=== PATIENT | male | born 1945 | race Caucasian/White ===

== ENCOUNTER 2018-12-28 01:08 | Observation (INO) ==
[2018-12-28] MEDS ORDERED: *HR* LORazepam 2 MG/ML VIAL IVP PRN (04:40)
[2018-12-28] MEDS ORDERED: D5% in Water 1,000 ML IVC PRN (04:40)
[2018-12-28] MEDS ORDERED: *HR* Dextrose 50 % in Water (Syg) 50 ML SYRINGE IVP PRN (04:40)
[2018-12-28] MEDS ORDERED: Naloxone 0.4 MG/ML INJ IVP PRN (04:40)
[2018-12-28] MEDS ORDERED: Dextrose Gel 15 GM/37.5 ML TUBE PO PRN ×2 (04:40)
[2018-12-28 05:07] LABS: Basophils % 0.4 %; Eosinophils # 0.1 K/mcL (0.0-0.6); Eosinophils % 1.6 %; Hematocrit 37.5 % (37.5-50.1); Hemoglobin 13.4 g/dL (12.9-16.9); Immature Granulocytes % 0.5 % (0-4); Lymphocytes # 0.9 K/mcL (0.6-4.6); Lymphocytes % 10.8 %; Mean Corpuscular HGB Conc 35.7 g/dL (31.6-35.5); Mean Corpuscular Hemoglobin 32.8 pg (28.0-33.3); Mean Corpuscular Volume 91.7 fL (83.0-100.0); Mean Platelet Volume 9.3 fL (9.4-12.4); Monocytes # 0.1 K/mcL (0.0-1.3); Monocytes % 1.8 %; Neutrophils # 6.8 K/mcL (1.6-8.9); Platelet Count 285 K/mcL (140-400); Red Blood Count 4.09 M/mcL (4.19-5.50); Red Cell Distribution Width 11.9 % (11.5-14.5); Segmented Neutrophils % 84.9 %
[2018-12-28 05:28] LABS: Albumin 4.2 g/dL (3.5-5.7); Albumin/Globulin Ratio 1.4 (1.1-2.2); Bilirubin,Total 0.9 mg/dL (0.3-1.0); Globulin 3.1 g/dL (2.4-3.5); Magnesium 1.5 mg/dL (1.6-2.6); Phosphorous 3.7 mg/dL (2.7-4.5); Potassium 3.2 mEq/L (3.5-5.1); Total Protein 7.3 g/dL (6.4-8.9)
--- NOTE | 2018-12-28 05:38 | Internal Med History&Physical ---
Date of Encounter: 12/28/18 Time of Encounter: 04:47 Internal Medicine - H&P: HPI Chief complaint: near syncope Admitted From: Hospital to Hospital Transfer Plans for Post Hospital Care: Home History of present illness: Mr. Covington is a 73 year old male who presents in transfer from [facility] ER for concerns of near syncope and hyponatremia. He was at home with his significant other tonight when he had a near syncopal spell associated with lightheadedness, dizziness, and falling. His girlfriend checked his blood pressure and it was very low according to patient. He went to the ER in [place] where he was fluid resuscitated and blood pressure normalized. However, he still had some orthostatic findings. He was found to have evidence of hyponatremia and alcohol intoxication as well. He was therefore sent to [facility] for further workup and care. Upon my assessment of the patient, he is alert, oriented, and has no complaints at this time. He confirms the above history and states he was lightheaded and dizzy at home with a near syncopal spell. He did not pass out but he did sustain a fall. I discussed the situation with the ER doc at [place]. There was concern the patient was likely intoxicated. I questioned him about his alcohol use and abuse, and he states he had 4 beers tonight. He drinks alcohol roughly 2 or 3 times a week, sometimes not at all. He states he does not drink alcohol on a daily basis. He feels much better after having received some fluids. I reviewed his home medication list and noticed that he is on Lasix, HCTZ, and chronic steroids. I asked the ER doc to give him a dose of Solu- Cortef for possible adrenal insufficiency. He did receive 1 dose of 100 mg Solu-Cortef. He denies any nausea, vomiting, diarrhea, or collapse. He feels much better after IV fluids. I suspect he was intravascularly dry from his chronic diuretic use and likely alcohol use. Past Med Surg Social Fam HX - Past Medical History Attestation: Yes The following information was validated with the patient. Source: patient, old records reviewed Medical history: arthritis, COPD, diabetes, hyperlipidemia, hypertension, thyroid disease Additional medical history: GOUT Psychiatric history: no psych history - Past Surgical History Surgical History: appendectomy, tonsilectomy Additional surgical history: RIGHT EYE REMOVED - Social History Smoking Status: Never smoker Smokeless Tobacco Status: Yes Alcohol use: occasionally Drug use: none Occupational status: employed Current living situation: Home, With Family Activity Level: Independent ambulation Recent Out of Country Travel Within the Last 8 Weeks: No - Family History Mother Adopted: [place]: Jolanta Bowels Family Member Ethnicity: Non- Living Status: Age at : 55 Cause of : Lung disease Hx Family Cardiac Disorders: No Hx Family Respiratory Disorders: Yes (smoker - emphysema) Hx Family Cancer: No Hx Family GI Disorders: No Hx Family Genitourinary Disorders: No Hx Family Endocrine Disorder: No Hx Family Musculoskeletal Disorders: No Hx Family Neuromuscular Disorders: No Hx Family Neurologic Disorders: No Hx Family HEENT Disorders: No Hx Family Autoimmune Disorders: No Hx Family Reproductive Disorders: No Hx Family Psychosocial Disorders: No Hx Family Medical Disorders: No Internal Medicine - H&P: Meds Albuterol Sulfate [Ventolin Hfa] 2 puff IH Q4-6H PRN 12/27/18 [History] Allopurinol [Zyloprim] 300 mg PO DAILY 12/27/18 [History] Amlodipine Besylate 10 mg PO DAILY 12/27/18 [History] Aspirin [Lo-Dose Aspirin EC] 81 mg PO DAILY 12/27/18 [History] Bacitracin OINT [Ak-Tracin] 1 appl TP BID 12/27/18 [History] Finasteride [Proscar] 5 mg PO DAILY 12/27/18 [History] Fish Oil/Dha/Epa [Fish Oil 1,200 mg Fish Oil] 1 each PO DAILY 12/27/18 [History] Flaxseed Oil [[place]-3 Flaxseed Oil] 1,200 mg PO DAILY 12/27/18 [History] Furosemide [Lasix] 40 mg PO DAILY 12/27/18 [History] Levothyroxine [Synthroid] 150 mcg PO DAILY 12/27/18 [History] Lisinopril-HCTZ 20-12.5 [Prinzide 20-12.5] 1 each PO DAILY 12/27/18 [History] Meloxicam 15 mg PO DAILY 12/27/18 [History] Montelukast [Singulair] 10 mg PO DAILY 12/27/18 [History] Nystatin [Nystatin Suspension] 100,000 units PO QID PRN 12/27/18 [History] Potassium Chloride [K-Tab ER] 20 meq PO DAILY 12/27/18 [History] PrednisoLONE [Millipred] 5 mg PO DAILY 12/27/18 [History] SitaGLIPtin [Januvia] 100 mg PO DAILY 12/27/18 [History] Tadalafil [Cialis] 5 mg PO DAILY 12/27/18 [History] Tamsulosin HCl [Flomax] 0.4 mg PO DAILY 12/27/18 [History] Timolol Maleate [Timoptic] 1 drop OP BID 12/27/18 [History] Tiotropium [Spiriva] 18 mcg IH 0700 12/27/18 [History] Vit C/E/Zn/Coppr/Lutein/Zeaxan [Preservision Areds 2 Softgel] 1 cap PO DAILY 12/27/18 [History] Allergy/AdvReac Type Severity Reaction Status Date / Time acetaminophen [From Percocet] Allergy Hives Verified 12/27/18 22:54 oxycodone [From Percocet] Allergy Hives Verified 12/27/18 22:54 - Constitutional Constitutional: no chills, no fever(s), no night sweats - EENT Eyes: no blurry vision, no change in vision Ears: no ear pain, no tinnitus Nose, mouth and throat: no nasal congestion, no sinus pressure, no sore throat - Cardiovascular Cardiovascular ROS IM: lightheadedness, other (+ near syncope), no chest pain, no dyspnea, no dyspnea on exertion, no syncope - Respiratory Respiratory: no cough, no dyspnea, no hemoptysis, no chest congestion, no excessive phlegm production, no change in phlegm color - Gastrointestinal Gastrointestinal: no abdominal pain, no diarrhea, no hematemesis, no hematochezia, no melena, no nausea, no vomiting - Genitourinary Genitourinary ROS male: no dysuria, no flank pain, no hematuria - Musculoskeletal Musculoskeletal ROS IM: arthralgias, no back pain - Integumentary Integumentary IM: no rash, no jaundice - Neurological Neurological ROS: no disequilibrium, no dizziness, no focal weakness, no frequent falls, no headache(s), no vertigo - Psychiatric Psychiatric: no anxiety, no depression - Endocrine Endocrine IM: no cold intolerance, no heat intolerance, no polydipsia, no polyphagia, no polyuria - Allergic/Immunologic Allergic/Immunologic: wheezing, no GI upset with certain foods - Constitutional Vitals: Temp Pulse Resp BP Pulse Ox 97.6 F 97 20 170/91 95 12/28/18 03:30 12/28/18 03:30 12/28/18 03:30 12/28/18 03:30 12/28/18 03:30 General appearance: Present: cooperative, A&O X 3, answers questions appropriately Exam: hard of hearing - Head Head exam: Present: atraumatic, normal inspection - Eye Eye exam: Present: EOMI, scleral icterus Pupils: Present: normal accommodation Additional comments: artificial eye on right - ENT ENT exam: Present: mucous membranes dry, normal exam, normal oropharynx - Neck Neck exam general surgery: Present: full ROM, supple. Absent: tenderness, nuchal rigidity, thyromegaly - Respiratory Respiratory exam: Present: rhonchi, wheezes. Absent: chest wall tenderness, CTAB, rales, respiratory distress, tachypnea - Cardiovascular Cardiovascular exam: Present: RRR, +S1, +S2. Absent: diastolic murmur, systolic murmur - GI/Abdominal GI/Abdominal exam: Present: normal bowel sounds, soft. Absent: hepatomegaly, mass, splenomegaly - Extremities Exam Extremities exam: Present: full ROM, warm, radial pulses palpable and symmetrical. Absent: calf tenderness, pedal edema, tenderness - Back Exam Back exam: Present: normal inspection. Absent: CVA tenderness (L), CVA tenderness (R) - Neurological Exam Neurological exam: Present: alert, CN II-XII intact, oriented X3, no focal deficits - Psychiatric Psychiatric exam: Present: normal affect, normal mood - Skin Skin exam: Present: dry, intact, warm - Assessment and plan (1) Near syncope Current Visit: Yes Status: Acute Assessment and plan: 1. Likely related to volume depletion and alcohol abuse. 2. Stop diuretics for now. 3. Patient received 2 L IVF boluses at [place]. 4. Monitor vitals closely. 5. Will trend troponins, EKG's, and order ECHO and carotid dopplers. (2) Dehydration Current Visit: Yes Status: Acute Assessment and plan: 1. S/P 2 L IVF bolus at [place]. 2. Will repeat labs STAT and allow him to eat and orally hydrate. (3) Hyponatremia Current Visit: Yes Status: Acute Assessment and plan: 1. Suspect due to diuretics and alcohol abuse. 2. Monitor closely. (4) DVT prophylaxis Current Visit: Yes Status: Acute Assessment and plan: 1. Heparin SQ.
[2018-12-28] MEDS: *HR* Heparin 5,000 UNIT/ML VIAL SQ SCH ×2 (06:05→18:19)
[2018-12-28] MEDS: Tiotropium 18 MCG inhalation IH SCH (08:32)
[2018-12-28] MEDS: Insulin LISPRO 300 UNITS/3 ML VIAL SQ SCH ×4 (08:49→16:26)
[2018-12-28] MEDS: Multivit/Ca/Min/Fe/FA 1 TAB TABLET PO SCH (11:16)
[2018-12-28] MEDS: Thiamine (B-1) 100 MG TABLET PO SCH (11:17)
[2018-12-28] MEDS: Aspirin Enteric Coated 81 MG Tablet PO SCH (11:17)
[2018-12-28] MEDS: Folic Acid 1 MG TABLET PO SCH (11:17)
[2018-12-28] MEDS: Vitamin B Complex/Vit C/Vit E 1 EACH TABLET PO SCH (11:17)
[2018-12-28] MEDS: amLODIPine 5 MG TABLET PO SCH (11:17)
[2018-12-28] MEDS: Finasteride 5 MG TABLET PO SCH (11:17)
--- NOTE | 2018-12-28 14:28 | Event Note ---
Date of Encounter: 12/28/18 Time of Encounter: 14:26 I have seen and evaluated the patient at bedside. patient hemodynamically stable, with no restring or intentional tremors. No hallucionations. will continue current management and re-assess patient in the morning electrolytes replaced
[2018-12-28] MEDS: PREDNISOLONE SOD PHOSPHATE PO SCH (16:22)
[2018-12-28] MEDS ORDERED: Insulin DETEMIR 100 UNIT/ML X5UNITS SQ SCH (21:00)
[2018-12-29] MEDS: *HR* Heparin 5,000 UNIT/ML VIAL SQ SCH (05:29)
[2018-12-29 08:17] VITALS: BP 153/85
[2018-12-29] MEDS: Tiotropium 18 MCG inhalation IH SCH (08:18)
[2018-12-29] MEDS: Insulin LISPRO 300 UNITS/3 ML VIAL SQ SCH ×2 (08:30→11:38)
[2018-12-29] MEDS: Aspirin Enteric Coated 81 MG Tablet PO SCH (08:36)
[2018-12-29] MEDS: Thiamine (B-1) 100 MG TABLET PO SCH (08:36)
[2018-12-29] MEDS: Multivit/Ca/Min/Fe/FA 1 TAB TABLET PO SCH (08:36)
[2018-12-29] MEDS: Finasteride 5 MG TABLET PO SCH (08:36)
[2018-12-29] MEDS: PREDNISOLONE SOD PHOSPHATE PO SCH (08:36)
[2018-12-29] MEDS: amLODIPine 5 MG TABLET PO SCH (08:36)
[2018-12-29] MEDS: Folic Acid 1 MG TABLET PO SCH (08:36)
[2018-12-29] MEDS: Vitamin B Complex/Vit C/Vit E 1 EACH TABLET PO SCH (08:36)
[2018-12-29 08:57] LABS: BUN/Creatinine Ratio 17 (6-26); Blood Urea Nitrogen 17 mg/dL (8-23); Calcium 9.1 mg/dL (8.6-10.3); Carbon Dioxide 26 mEq/L (23-29); Chloride 97 mEq/L (98-107); Glucose 124 mg/dL (70-105); Osmolality,Calculated 275 (280-300); Potassium 3.5 mEq/L (3.5-5.1); Sodium 131 mEq/L (136-145); eGFR For Non-African Americans > 60 (> 60)
--- NOTE | 2018-12-29 09:27 | Discharge Summary ---
- NOTES TO OUTPATIENT PROVIDER Notes to Outpatient Provider: follow up with your PCP within a week of hospital discharge. Orders not resulted at time of discharge: Pending orders 12/28/18 04:40 ECG 12 lead ECG [ECG] Routine 12/28/18 08:03 EKG [ECG 12 lead ECG] [ECG] Stat 12/29/18 05:15 Hgb A1C AM 0400 Date of Encounter: 12/29/18 Time of Encounter: 09:24 - Discharge Diagnosis (1) Hyponatremia Priority: Primary Status: Resolved (2) Near syncope Priority: Primary Status: Resolved (3) Dehydration Priority: Secondary Status: Resolved (4) DVT prophylaxis Priority: Secondary Status: Acute (5) Diabetes Priority: Secondary Status: Chronic Qualifiers: Diabetes mellitus type: type 2 Diabetes mellitus complication status: with unspecified complications Qualified Code(s): E11.8 - Type 2 diabetes mellitus with unspecified complications Hospital course: Mr. Covington is a 73 year old male PMH arthritis, COPD, diabetes, hyperlipidemia, hypertension, thyroid disease, gout. patient was transferred to [facility] due to the concerns of a near syncope and hyponatremia. patient reported having a near syncopal episode at home associated with lightheadedness, dizziness. Patient reported his girlfriend checked his BP at home and it was low. Before the patient was transferred to [facility] he was resuscitated with IV fluids with normalization of the blood pressure. Patient reports drinking about 4-5 beers a day. Patient found to be Hyponatremia with sodium onf 127. Patient placed on fluids restriction and sodium level corrected to 131 with no neurological abnormalities. During this hospitalization patient HR was ranging in the 120s- 130s sinus tachycardia, patient was started on Metoprolol and rate has been controlled in the 80s. Patient acute symptoms have resolved and patient is back to his baseline. Will be discharged home. Recommended to follow up with his PCP within a week of hospital discharge. - Time Spent with Patient Total time spent providing and/or coordinating discharge services: Greater than 30 minutes (35) - Discharge Medications Prescriptions: Metoprolol [Lopressor] 25 mg PO BID 30 Days #60 tablet Home Medications: Albuterol Sulfate [Ventolin Hfa] 2 puff IH Q4-6H PRN 12/27/18 [History] Allopurinol [Zyloprim] 300 mg PO DAILY 12/27/18 [History] Amlodipine Besylate 10 mg PO DAILY 12/27/18 [History] Aspirin [Lo-Dose Aspirin EC] 81 mg PO DAILY 12/27/18 [History] Bacitracin OINT [Ak-Tracin] 1 appl TP BID 12/27/18 [History] Finasteride [Proscar] 5 mg PO DAILY 12/27/18 [History] Fish Oil/Dha/Epa [Fish Oil 1,200 mg Fish Oil] 1 each PO DAILY 12/27/18 [History] Flaxseed Oil [[place]-3 Flaxseed Oil] 1,200 mg PO DAILY 12/27/18 [History] Furosemide [Lasix] 40 mg PO DAILY 12/27/18 [History] Levothyroxine [Synthroid] 150 mcg PO DAILY 12/27/18 [History] Lisinopril-HCTZ 20-12.5 [Prinzide 20-12.5] 1 each PO DAILY 12/27/18 [History] Meloxicam 15 mg PO DAILY 12/27/18 [History] Montelukast [Singulair] 10 mg PO DAILY 12/27/18 [History] Nystatin [Nystatin Suspension] 100,000 units PO QID PRN 12/27/18 [History] Potassium Chloride [K-Tab ER] 20 meq PO DAILY 12/27/18 [History] PrednisoLONE [Millipred] 5 mg PO DAILY 12/27/18 [History] SitaGLIPtin [Januvia] 100 mg PO DAILY 12/27/18 [History] Tadalafil [Cialis] 5 mg PO DAILY 12/27/18 [History] Tamsulosin HCl [Flomax] 0.4 mg PO DAILY 12/27/18 [History] Timolol Maleate [Timoptic] 1 drop OP BID 12/27/18 [History] Tiotropium [Spiriva] 18 mcg IH 0700 12/27/18 [History] Vit C/E/Zn/Coppr/Lutein/Zeaxan [Preservision Areds 2 Softgel] 1 cap PO DAILY 12/27/18 [History] Metoprolol [Lopressor] 25 mg PO BID 30 Days #60 tablet 12/29/18 [Rx] Allergies/Adverse Reactions: Allergy/AdvReac Type Severity Reaction Status Date / Time acetaminophen [From Percocet] Allergy Hives Verified 12/27/18 22:54 oxycodone [From Percocet] Allergy Hives Verified 12/27/18 22:54 Date of admission: 12/28/18 03:09 Primary care physician: PCP NONE - Constitutional Vitals: Temp Pulse Resp BP Pulse Ox 97.9 F 86 18 153/85 92 12/29/18 08:10 12/29/18 08:10 12/29/18 08:19 12/29/18 08:10 12/29/18 08:19 General appearance: Present: cooperative, A&O X 3, answers questions appropriately Exam: Vitals: Reviewed General: Alert and oriented x4. In no distress Skin: Normal color, no rash, no lesions. HEENT: EOM, pupils equal, round and reactive. Cardiovascular: RRR, normal S1 & S2, no rubs, murmurs or gallops. Lungs: CTA b/l, no wheezes or crackles. Abdomen: Obese, soft, non-tender, no rigidity. Extremities: No deformity, no edema or tenderness, no joint swelling or clubbing. Neurological: Normal cognition and motor skills. Rest of the physical exam is non contributory - Patient Status Disposition: Home, Self-Care Condition: Good Functional capacity at discharge: independent ambulation Overall status at discharge: patient is back to baseline - Discharge Instructions Follow Up With: NONE,PCP [Primary Care Provider] - - Diet and Activity Activity: resume usual activities as tolerated Diet: diabetic diet, low salt diet
[2018-12-30 13:11] LABS: Estimated Average Glucose 146 mg/dl; Hemoglobin A1C 6.7 %
--- NOTE | 2018-12-31 17:19 | Electrocardiograph Report ---
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
--- NOTE | 2018-12-31 17:21 | Electrocardiograph Report ---
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
== END 2018-12-29 11:50 | disposition home or self-care (01) ==
LOC: 3BNU → SUATTDRO 03:09
PROVIDERS: ADMIT Pediatrics; ATTEND Internal Medicine

== ENCOUNTER 2021-07-03 21:12 | Inpatient (IN) ==
[2021-07-04 01:08] LABS: Basophils # 0.1 K/mcL (0.0-0.2); Basophils % 0.3 %; Eosinophils # 0.4 K/mcL (0.0-0.6); Eosinophils % 2.7 %; Hematocrit 24.3 % (37.5-50.1); Hemoglobin 8.6 g/dL (12.9-16.9); Immature Granulocytes % 1.8 % (0-4); Lymphocytes # 1.8 K/mcL (0.6-4.6); Lymphocytes % 12.2 %; Mean Corpuscular HGB Conc 35.4 g/dL (31.6-35.5); Mean Corpuscular Volume 90.3 fL (83.0-100.0); Mean Platelet Volume 9.8 fL (9.4-12.4); Monocytes # 1.2 K/mcL (0.0-1.3); Monocytes % 7.9 %; Neutrophils # 11.3 K/mcL (1.6-8.9); Platelet Count 375 K/mcL (140-400); Red Blood Count 2.69 M/mcL (4.19-5.50); Red Cell Distribution Width 15.1 % (11.5-14.5); Segmented Neutrophils % 75.1 %
[2021-07-04 01:30] LABS: Calcium 8.7 mg/dL (8.6-10.3); Potassium 3.9 mEq/L (3.5-5.1)
[2021-07-04] MEDS ORDERED: 0.9 % Sodium Chloride 1,000 ML IVC ONE (01:37)
[2021-07-04] MEDS ORDERED: *HR* HYDROcodone/Acet 5/325 mg TABLET PO PRN (08:37)
[2021-07-04] MEDS ORDERED: Acetaminophen 325 MG TABLET PO PRN (08:37)
[2021-07-04] MEDS ORDERED: Ondansetron 4 MG/2 ML VIAL IVP PRN (08:37)
[2021-07-04] MEDS ORDERED: Naloxone 0.4 MG/ML INJ IVP PRN (08:37)
[2021-07-04] MEDS ORDERED: Melatonin 3 MG TABLET PO PRN (08:37)
[2021-07-04] MEDS ORDERED: D5% in Water 1,000 ML IVC PRN (08:42)
[2021-07-04] MEDS ORDERED: Dextrose Gel 15 GM/37.5 ML TUBE PO PRN ×2 (08:42)
[2021-07-04] MEDS ORDERED: *HR* Dextrose 50 % in Water (Vial) 50 ML VIAL IVP PRN (08:42)
[2021-07-04] MEDS ORDERED: Ringers Solution, Lactated 1,000 ML IVC SCH (08:45)
[2021-07-04 10:33] LABS: Adenovirus Not Detected (Not Detect); Coronavirus 229E Not Detected (Not Detect); Coronavirus HKU1 Not Detected (Not Detect); Coronavirus NL63 Not Detected (Not Detect); Coronavirus OC43 Not Detected (Not Detect); Human Metapneumovirus Not Detected (Not Detect); Human Rhinovirus/Enterovirus Not Detected (Not Detect); Influenza A Subtype 2009 H1 Not Detected (Not Detect); Influenza B Not Detected (Not Detect); Parainfluenza Virus 1 Not Detected (Not Detect); Parainfluenza Virus 2 Not Detected (Not Detect); SARS-CoV-2 Not Detected (Not Detect)
[2021-07-04 10:34] LABS: Bordetella Pertussis Not Detected (Not Detect); Chlamydophila pneumoniae Not Detected (Not Detect); Mycoplasma pneumoniae Not Detected (Not Detect); Parainfluenza Virus 3 DETECTED (Not Detect); Parainfluenza Virus 4 Not Detected (Not Detect); Respiratory Syncytial Virus Not Detected (Not Detect)
[2021-07-04 11:06] LABS: Hematocrit 20.6 % (37.5-50.1); Hemoglobin 7.3 g/dL (12.9-16.9)
[2021-07-04 11:16] LABS: Prothrombin Time 11.3 Seconds (9.4-12.1)
[2021-07-04 11:28] LABS: BUN/Creatinine Ratio 24 (6-26); Blood Urea Nitrogen 33 mg/dL (8-23); Calcium 7.9 mg/dL (8.6-10.3); Carbon Dioxide 24 mEq/L (23-29); Chloride 92 mEq/L (98-107); Glucose 159 mg/dL (70-105); Osmolality,Calculated 271 (280-300); Potassium 3.6 mEq/L (3.5-5.1); Sodium 125 mEq/L (136-145); eGFR For African Americans > 60 (> 60); eGFR For Non-African Americans 51 (> 60)
[2021-07-04] MEDS: Ipratropium/Albuterol Neb 3 ML IH SCH ×3 (12:37→21:53)
[2021-07-04] MEDS: Insulin LISPRO 300 UNITS/3 ML VIAL SUBQ SCH ×2 (12:38→16:40)
[2021-07-04] MEDS ORDERED: *HR* LORazepam 2 MG/ML VIAL IVP PRN ×3 (13:57)
[2021-07-04 14:59] LABS: Hematocrit 22.9 % (37.5-50.1); Hemoglobin 7.8 g/dL (12.9-16.9)
[2021-07-04 15:17] LABS: % Iron Saturation 11 % (20-55); Calcium 8.2 mg/dL (8.6-10.3); Iron 35 mcg/dL (65-175); Potassium 3.4 mEq/L (3.5-5.1); Transferrin 218 mg/dL (203-362)
[2021-07-04] MEDS: Azithromycin 250 MG TABLET PO SCH (15:20)
[2021-07-04] MEDS: predniSONE 20 MG TABLET PO SCH (15:20)
[2021-07-04 15:24] LABS: Ethanol < 10 mg/dL (Less than 10); Lipase 29 Units/L (11-82)
[2021-07-04 15:40] LABS: Estimated Average Glucose 203 mg/dl; Hemoglobin A1C 8.7 %
[2021-07-04 15:42] LABS: Ferritin 200 ng/mL (20-250)
[2021-07-04 15:45] LABS: Thyroid Stimulating Hormone 1.291 mcIU/mL (0.340-5.600)
[2021-07-04 15:54] LABS: Folate > 22.3 ng/mL (3.0-16.0); Vitamin B12 501 pg/mL (250-1100)
[2021-07-04 17:45] LABS: Amorphous Sediment,Urine Few per hpf (None-Few); Bacteria,Urine Few per hpf (None-Few); Bilirubin,Urine Negative (Negative); Blood,Urine Negative (Negative); Clarity,Urine Turbid (Clear); Color,Urine Light-Yellow (Yellow); Glucose,Urine (UA) Normal (Normal); Hyaline Casts,Urine Few per lpf (None Seen); Ketones,Urine Negative (Negative); Leukocyte Esterase,Urine Large (Negative); Nitrite,Urine Negative (Negative); Protein,Urine Trace mg/dL (Neg-Trace); RBC,Urine 0-3 per hpf (0-3); Specific Gravity,Urine 1.011 (1.010-1.025); Squamous Epithelial Cell,Urine Few per hpf (None-Few); Urobilinogen,Urine Normal (Normal); WBC,Urine 50-100 per hpf (0-3)
[2021-07-04 18:10] LABS: Sodium, Urine 15.7 mEq/L
[2021-07-04] MEDS: *HR* OxyCODONE Immed Rel 5 MG TABLET PO PRN (20:44)
[2021-07-04] MEDS: Benzonatate 100 MG CAPSULE PO PRN (20:44)
[2021-07-04] MEDS: Budesonide/Formoterol 160/4.5 1 PUFF INH IH SCH (21:55)
[2021-07-04 22:07] LABS: Calcium 7.9 mg/dL (8.6-10.3); Potassium 4.2 mEq/L (3.5-5.1)
[2021-07-04] MEDS: Latanoprost 2.5 ML BOTTLE LEFT EYE SCH (22:23)
[2021-07-05] MEDS ORDERED: 0.9 % Sodium Chloride 1,000 ML IVC SCH (01:45)
[2021-07-05] MEDS: Ipratropium/Albuterol Neb 3 ML IH SCH ×4 (03:11→21:42)
[2021-07-05] MEDS: *HR* OxyCODONE Immed Rel 5 MG TABLET PO PRN (05:09)
[2021-07-05] MEDS: Benzonatate 100 MG CAPSULE PO PRN (05:09)
[2021-07-05 05:46] LABS: Basophils % 0.2 %; Eosinophils % 0.1 %; Hematocrit 21.1 % (37.5-50.1); Hemoglobin 7.2 g/dL (12.9-16.9); Immature Granulocytes % 1.6 % (0-4); Lymphocytes # 0.9 K/mcL (0.6-4.6); Mean Corpuscular HGB Conc 34.1 g/dL (31.6-35.5); Mean Corpuscular Volume 93.8 fL (83.0-100.0); Mean Platelet Volume 10.2 fL (9.4-12.4); Monocytes # 0.5 K/mcL (0.0-1.3); Monocytes % 4.5 %; Neutrophils # 9.9 K/mcL (1.6-8.9); Platelet Count 319 K/mcL (140-400); Red Blood Count 2.25 M/mcL (4.19-5.50); Red Cell Distribution Width 15.4 % (11.5-14.5); Segmented Neutrophils % 85.6 %; White Blood Count 11.5 K/mcL (4.3-11.1)
[2021-07-05 06:07] LABS: Calcium 8.2 mg/dL (8.6-10.3); Magnesium 1.5 mg/dL (1.6-2.6); Phosphorous 3.8 mg/dL (2.7-4.5)
[2021-07-05 06:10] LABS: Calcium 8.2 mg/dL (8.6-10.3); Potassium 4.1 mEq/L (3.5-5.1)
[2021-07-05 09:21] LABS: BUN/Creatinine Ratio 22 (6-26); Blood Urea Nitrogen 29 mg/dL (8-23); Calcium 8.6 mg/dL (8.6-10.3); Carbon Dioxide 23 mEq/L (23-29); Chloride 94 mEq/L (98-107); Glucose 223 mg/dL (70-105); Osmolality,Calculated 275 (280-300); Sodium 126 mEq/L (136-145); eGFR For African Americans > 60 (> 60); eGFR For Non-African Americans 52 (> 60)
[2021-07-05] MEDS: Budesonide/Formoterol 160/4.5 1 PUFF INH IH SCH ×2 (09:31→21:41)
[2021-07-05] MEDS ORDERED: 0.9 % Sodium Chloride 250 ML ONE (09:37)
[2021-07-05] MEDS: Vitamin B Complex/Vit C/Vit E 1 EACH TABLET PO SCH (09:55)
[2021-07-05] MEDS: Folic Acid 1 MG TABLET PO SCH (09:55)
[2021-07-05] MEDS: Thiamine (B-1) 100 MG TABLET PO SCH (09:55)
[2021-07-05] MEDS: Lisinopril-HCTZ 20-12.5mg TABLET PO SCH (09:55)
[2021-07-05] MEDS: Azithromycin 250 MG TABLET PO SCH (09:55)
[2021-07-05] MEDS: predniSONE 20 MG TABLET PO SCH (09:55)
[2021-07-05] MEDS: amLODIPine 5 MG TABLET PO SCH (09:56)
[2021-07-05] MEDS: Finasteride 5 MG TABLET PO SCH (09:56)
[2021-07-05] MEDS: Insulin LISPRO 300 UNITS/3 ML VIAL SUBQ SCH ×3 (10:12→18:25)
[2021-07-05] MEDS: Furosemide 40 MG TABLET PO SCH (13:02)
[2021-07-05 14:41] LABS: Hematocrit 23.6 % (37.5-50.1); Hemoglobin 8.3 g/dL (12.9-16.9)
[2021-07-05] MEDS: Latanoprost 2.5 ML BOTTLE LEFT EYE SCH (21:55)
[2021-07-06] MEDS: Ipratropium/Albuterol Neb 3 ML IH SCH ×4 (05:51→21:17)
[2021-07-06 05:52] LABS: Basophils % 0.1 %; Eosinophils % 0.1 %; Hematocrit 23.1 % (37.5-50.1); Immature Granulocytes % 1.1 % (0-4); Lymphocytes # 1.2 K/mcL (0.6-4.6); Lymphocytes % 8.6 %; Mean Corpuscular HGB Conc 34.6 g/dL (31.6-35.5); Mean Corpuscular Hemoglobin 32.1 pg (28.0-33.3); Mean Corpuscular Volume 92.8 fL (83.0-100.0); Mean Platelet Volume 9.8 fL (9.4-12.4); Monocytes # 1.1 K/mcL (0.0-1.3); Monocytes % 8.1 %; Neutrophils # 11.4 K/mcL (1.6-8.9); Platelet Count 295 K/mcL (140-400); Red Blood Count 2.49 M/mcL (4.19-5.50); Red Cell Distribution Width 15.6 % (11.5-14.5); White Blood Count 13.9 K/mcL (4.3-11.1)
[2021-07-06 06:15] LABS: BUN/Creatinine Ratio 25 (6-26); Blood Urea Nitrogen 25 mg/dL (8-23); Calcium 8.6 mg/dL (8.6-10.3); Carbon Dioxide 26 mEq/L (23-29); Chloride 93 mEq/L (98-107); Glucose 198 mg/dL (70-105); Osmolality,Calculated 274 (280-300); Potassium 3.4 mEq/L (3.5-5.1); Sodium 127 mEq/L (136-145); eGFR For African Americans > 60 (> 60); eGFR For Non-African Americans > 60 (> 60)
[2021-07-06] MEDS: Budesonide/Formoterol 160/4.5 1 PUFF INH IH SCH ×4 (09:25→21:20)
[2021-07-06] MEDS ORDERED: Haloperidol Lactate 5 MG/ML VIAL IVP PRN (11:46)
[2021-07-06] MEDS ORDERED: Iron Sucrose Complex 400 MG in 0.9 % Sodium Chloride 250 ML IVPB ONE (11:50)
[2021-07-06] MEDS: Insulin LISPRO 300 UNITS/3 ML VIAL SUBQ SCH ×3 (11:57→17:33)
[2021-07-06] MEDS: Azithromycin 250 MG TABLET PO SCH (12:46)
[2021-07-06] MEDS: Furosemide 40 MG TABLET PO SCH (12:47)
[2021-07-06] MEDS: Vitamin B Complex/Vit C/Vit E 1 EACH TABLET PO SCH (12:47)
[2021-07-06] MEDS: amLODIPine 5 MG TABLET PO SCH (12:47)
[2021-07-06] MEDS: predniSONE 20 MG TABLET PO SCH (12:47)
[2021-07-06] MEDS: Thiamine (B-1) 100 MG TABLET PO SCH (12:47)
[2021-07-06] MEDS: Finasteride 5 MG TABLET PO SCH (12:48)
[2021-07-06] MEDS: Folic Acid 1 MG TABLET PO SCH (12:48)
[2021-07-06] MEDS: Lisinopril-HCTZ 20-12.5mg TABLET PO SCH (12:58)
[2021-07-06] MEDS: Aspirin Enteric Coated 81 MG Tablet PO SCH (13:03)
[2021-07-06] MEDS: *HR* OxyCODONE Immed Rel 5 MG TABLET PO PRN (20:39)
[2021-07-06] MEDS: Benzonatate 100 MG CAPSULE PO PRN (20:39)
[2021-07-06] MEDS: traZODone 50 MG TABLET PO SCH (20:39)
[2021-07-06] MEDS: Latanoprost 2.5 ML BOTTLE LEFT EYE SCH (20:39)
[2021-07-07 01:43] LABS: Hematocrit 23.4 % (37.5-50.1); Hemoglobin 8.1 g/dL (12.9-16.9); Mean Corpuscular HGB Conc 34.6 g/dL (31.6-35.5); Mean Corpuscular Hemoglobin 32.4 pg (28.0-33.3); Mean Corpuscular Volume 93.6 fL (83.0-100.0); Mean Platelet Volume 9.6 fL (9.4-12.4); Platelet Count 292 K/mcL (140-400); Red Cell Distribution Width 15.6 % (11.5-14.5); White Blood Count 13.3 K/mcL (4.3-11.1)
[2021-07-07 02:12] LABS: BUN/Creatinine Ratio 20 (6-26); Blood Urea Nitrogen 24 mg/dL (8-23); Calcium 8.3 mg/dL (8.6-10.3); Carbon Dioxide 24 mEq/L (23-29); Chloride 89 mEq/L (98-107); Glucose 239 mg/dL (70-105); Osmolality,Calculated 266 (280-300); Potassium 4.4 mEq/L (3.5-5.1); Sodium 122 mEq/L (136-145); eGFR For African Americans > 60 (> 60); eGFR For Non-African Americans 59 (> 60)
[2021-07-07] MEDS: Ipratropium/Albuterol Neb 3 ML IH SCH ×4 (03:29→21:52)
[2021-07-07] MEDS ORDERED: 0.9 % Sodium Chloride 1,000 ML IVC SCH (08:15)
[2021-07-07] MEDS: Insulin LISPRO 300 UNITS/3 ML VIAL SUBQ SCH ×3 (09:23→16:40)
[2021-07-07] MEDS: predniSONE 20 MG TABLET PO SCH (09:24)
[2021-07-07] MEDS: Folic Acid 1 MG TABLET PO SCH (09:24)
[2021-07-07] MEDS: Vitamin B Complex/Vit C/Vit E 1 EACH TABLET PO SCH (09:24)
[2021-07-07] MEDS: Finasteride 5 MG TABLET PO SCH (09:25)
[2021-07-07] MEDS: amLODIPine 5 MG TABLET PO SCH (09:25)
[2021-07-07] MEDS: Azithromycin 250 MG TABLET PO SCH (09:25)
[2021-07-07] MEDS: Thiamine (B-1) 100 MG TABLET PO SCH (09:25)
[2021-07-07] MEDS: Aspirin Enteric Coated 81 MG Tablet PO SCH (09:40)
[2021-07-07] MEDS: Budesonide/Formoterol 160/4.5 1 PUFF INH IH SCH ×4 (10:29→23:14)
[2021-07-07 18:14] LABS: BUN/Creatinine Ratio 22 (6-26); Blood Urea Nitrogen 25 mg/dL (8-23); Calcium 8.8 mg/dL (8.6-10.3); Carbon Dioxide 25 mEq/L (23-29); Chloride 89 mEq/L (98-107); Glucose 256 mg/dL (70-105); Osmolality,Calculated 271 (280-300); Potassium 3.7 mEq/L (3.5-5.1); Sodium 124 mEq/L (136-145); eGFR For African Americans > 60 (> 60); eGFR For Non-African Americans > 60 (> 60)
[2021-07-07] MEDS ORDERED: GuaiFENesin Liq 200 MG/10 ML UDC PO PRN (21:53)
[2021-07-07] MEDS: traZODone 50 MG TABLET PO SCH (22:12)
[2021-07-07] MEDS: Latanoprost 2.5 ML BOTTLE LEFT EYE SCH (22:13)
[2021-07-08] MEDS: Ipratropium/Albuterol Neb 3 ML IH SCH ×2 (03:40→09:12)
[2021-07-08 06:53] VITALS: TEMP 97.9
[2021-07-08 07:01] LABS: Hematocrit 22.8 % (37.5-50.1); Hemoglobin 7.8 g/dL (12.9-16.9); Mean Corpuscular HGB Conc 34.2 g/dL (31.6-35.5); Mean Corpuscular Hemoglobin 32.4 pg (28.0-33.3); Mean Corpuscular Volume 94.6 fL (83.0-100.0); Mean Platelet Volume 9.5 fL (9.4-12.4); Platelet Count 273 K/mcL (140-400); Red Blood Count 2.41 M/mcL (4.19-5.50); Red Cell Distribution Width 15.5 % (11.5-14.5); White Blood Count 13.4 K/mcL (4.3-11.1)
[2021-07-08 07:21] LABS: BUN/Creatinine Ratio 25 (6-26); Blood Urea Nitrogen 24 mg/dL (8-23); Calcium 8.3 mg/dL (8.6-10.3); Carbon Dioxide 27 mEq/L (23-29); Chloride 97 mEq/L (98-107); Glucose 241 mg/dL (70-105); Osmolality,Calculated 282 (280-300); Potassium 3.5 mEq/L (3.5-5.1); Sodium 130 mEq/L (136-145); eGFR For African Americans > 60 (> 60); eGFR For Non-African Americans > 60 (> 60)
[2021-07-08 07:22] LABS: Magnesium 1.4 mg/dL (1.6-2.6); Phosphorous 2.4 mg/dL (2.7-4.5)
[2021-07-08] MEDS: Aspirin Enteric Coated 81 MG Tablet PO SCH (09:03)
[2021-07-08] MEDS: Folic Acid 1 MG TABLET PO SCH (09:03)
[2021-07-08] MEDS: amLODIPine 5 MG TABLET PO SCH (09:03)
[2021-07-08] MEDS: Thiamine (B-1) 100 MG TABLET PO SCH (09:03)
[2021-07-08] MEDS: Vitamin B Complex/Vit C/Vit E 1 EACH TABLET PO SCH (09:03)
[2021-07-08] MEDS: Finasteride 5 MG TABLET PO SCH (09:03)
[2021-07-08] MEDS: Insulin LISPRO 300 UNITS/3 ML VIAL SUBQ SCH (09:04)
[2021-07-08] MEDS: Budesonide/Formoterol 160/4.5 1 PUFF INH IH SCH ×2 (09:09→09:13)
[2021-07-08 10:52] VITALS: PULSE 104; O2SAT 98
[2021-07-08 11:10] VITALS: BP 130/70
== END 2021-07-08 12:12 | disposition home or self-care (01) | DRG 604 ==
LOC: CDU 21:12 → EMEROOARM 21:12 → SUATTDRO 07-04 05:27 → CDU 07-04 06:22 → SUATTDRO 07-05 17:18
PROVIDERS: ADMIT Student in an Organized Health Care Education/Training Program; ATTEND Internal Medicine